=== PATIENT | female | born 1985 | race Caucasian/White ===

== ENCOUNTER 2018-12-26 12:28 | Outpatient (REF) | payer MEDICAID, SELFPAY ==
--- NOTE | 2018-12-26 11:00 | PAPFT_PTH ---
PATIENT: Ariel Betancourt LOC: [facility] U#:[id number] AGE/SX: 33/F ROOM: RE12/26/[address]: HELADIO Llamas : 1985 BED: DIS: 12/26/2018 SPEC #: [id number] RECD: 12/26/18 12:56 STATUS: ANNE MARIE REQ #: [id number] BRIGIDO: 12/26/18 11:[address]: Isabel Molina DEPT: [facility] Cytology RECD BY: Belinda Davison ENTERED: 12/26/18 12:56 SP TYPE: PAPFT OT DR: None Tissues: 1 - CX/ENDOCX FOR PAP SMEARS Procedures: PAP THIN PREP/UVM Screening HPV DNA PROBE Comments: [id number]
== END 2018-12-26 12:48 ==
LOC: LBN 12:28
PROVIDERS: Visit Provider Nurse Practitioner Family
DX: Z12.4 Encounter for screening for malignant neoplasm of cervix (principal); Z11.51 Encounter for screening for human papillomavirus (HPV)
CPT/HCPCS: 88142; 87624

== ENCOUNTER 2019-09-28 15:45 | Outpatient (REF) | payer MEDICAID, SELFPAY ==
[2019-10-01 13:15] LABS: Chlamydia Result Negative (Negative); GC Result Negative (Negative)
== END 2019-09-28 16:05 ==
LOC: LBN 15:45
PROVIDERS: Visit Provider Nurse Practitioner Family
DX: Z11.3 Encounter for screening for infections with a predominantly sexual mode of transmission (principal)
CPT/HCPCS: 87491; 87591

== ENCOUNTER 2019-10-04 12:02 | Outpatient (CLI) | payer MEDICAID, SELFPAY ==
[2019-10-04 13:54] LABS: TSH (W/Ref FT4) 0.92 uIU/mL (0.36-3.74)
== END 2019-10-04 12:22 ==
PROVIDERS: PCP Nurse Practitioner Family; Visit Provider Nurse Practitioner Family
DX: N92.6 Irregular menstruation, unspecified (principal)
CPT/HCPCS: 36415; 84443

== ENCOUNTER 2021-04-21 11:26 | Outpatient (REF) | payer MEDICAID, SELFPAY ==
[2021-04-22 15:57] LABS: COVID-19 RT-PCR UVMMC Result Negative (Negative)
== END 2021-04-21 11:27 | disposition home or self-care (01) ==
LOC: LBN 11:26
PROVIDERS: PCP Nurse Practitioner Family; Visit Provider Nurse Practitioner Family
DX: Z20.822 Contact with and (suspected) exposure to COVID-19 (principal); J06.9 Acute upper respiratory infection, unspecified
CPT/HCPCS: U0003

== ENCOUNTER 2021-04-30 10:51 | Outpatient (CLI) | payer MEDICAID, SELFPAY ==
--- NOTE | 2021-04-30 | DI.RAD_ITS ---
Exam(s) XR CHEST 2V PA LATERAL EXAM: XR CHEST 2V PA LATERAL CLINICAL HISTORY: COUGH R05. TECHNIQUE: 2D digital imaging was performed. COMPARISON: No exams were available for comparison FINDINGS: Heart size is normal. The mediastinum is not widened. Lungs are hyperinflated but there are no focal infiltrates nor pleural effusions. No pneumothorax. No ominous pulmonary nodules. IMPRESSION: No acute pulmonary findings.Bilateral hyperinflation. DATA REPOSITORY: RADIATION DOSE DELIVERED:
== END 2021-04-30 11:11 ==
PROVIDERS: PCP Nurse Practitioner Family; Visit Provider Physician Assistant Medical
DX: R05 Cough (principal); R91.8 Other nonspecific abnormal finding of lung field
CPT/HCPCS: 71046

== ENCOUNTER 2021-05-02 11:59 | Outpatient (REF) | payer MEDICAID, SELFPAY ==
[2021-05-02 14:54] LABS: Abs Immature Grans 0.03 10^3/uL (0.0-0.06); Absolute Basophil Count 0.03 10^3/uL (0.0-0.2); Absolute Eosinophil Count 0.45 10^3/uL (0.0-0.7); Absolute Lymphocyte Count 3.18 10^3/uL (1.2-3.4); Absolute Monocyte Count 0.83 10^3/uL (0.1-0.8); Absolute Neutrophil Count 4.57 10^3/uL (1.2-6.7); Basophils % 0.3; HCT 44.4 % (36.0-46.0); HGB 14.7 g/dL (11.2-15.7); Immature Grans % 0.3; MCH 30.7 pg (27.0-33.0); MCHC 33.1 % (32.0-36.0); MCV 92.7 fL (80-95); MPV 9.8 fL (8.0-11.0); Monocytes % 9.1; Neutrophils % 50.3; Nucleated RBC 0 %; Platelet Count 330 10^3/uL (130-400); RBC 4.79 10^6/uL (3.93-5.22); RDW 12.5 % (11.7-14.6); WBC 9.09 10^3/uL (4.4-10.8)
== END 2021-05-02 12:00 | disposition home or self-care (01) ==
LOC: LBN 11:59
PROVIDERS: PCP Nurse Practitioner Family; Visit Provider Nurse Practitioner Family
DX: R07.89 Other chest pain (principal); J06.9 Acute upper respiratory infection, unspecified
CPT/HCPCS: 85025; 85379

== ENCOUNTER 2021-07-29 03:15 | Outpatient (CLI) | payer MEDICAID, SELFPAY ==
[2021-07-29 12:16] LABS: Abs Immature Grans 0.06 10^3/uL (0.0-0.06); Absolute Basophil Count 0.03 10^3/uL (0.0-0.2); Absolute Eosinophil Count 0.39 10^3/uL (0.0-0.7); Absolute Lymphocyte Count 2.16 10^3/uL (1.2-3.4); Absolute Monocyte Count 0.63 10^3/uL (0.1-0.8); Absolute Neutrophil Count 7.57 10^3/uL (1.2-6.7); Basophils % 0.3; Eosinophils % 3.6; HCT 39.2 % (36.0-46.0); HGB 13.3 g/dL (11.2-15.7); Immature Grans % 0.6; Lymphocytes % 19.9; MCH 31.1 pg (27.0-33.0); MCHC 33.9 % (32.0-36.0); MCV 91.8 fL (80-95); Monocytes % 5.8; Neutrophils % 69.8; Nucleated RBC 0 %; Platelet Count 247 10^3/uL (130-400); RBC 4.27 10^6/uL (3.93-5.22); RDW 12.9 % (11.7-14.6); RDW-SD 43.1 fL; WBC 10.84 10^3/uL (4.4-10.8)
[2021-07-29 13:45] LABS: *AMPHETAMINES SCREEN URINE Negative (Negative); *BARBITURATES SCREEN URINE Negative (Negative); *BENZODIAZEPINES SCREEN URINE Negative (Negative); Cannabinoids THC Positive (Negative); Cocaine Screen,Urine Negative (Negative); METHADONE URINE SCREEN Negative (Negative); OPIATES URINE SCREEN Negative (Negative)
[2021-07-29 13:46] LABS: Tricyclic Antidepressants Negative (Negative)
[2021-07-30 08:57] LABS: Hepatitis B Surface Ag Negative (Negative)
[2021-07-30 10:20] LABS: HIV-1/2 Ag & Ab Screen Negative (Negative)
[2021-07-30 10:33] LABS: Hepatitis C Ab w Rflx HCV PCR Negative (Negative)
[2021-07-30 10:37] LABS: Rubella IgG Ab (UVM) Positive (See Note); Varicella IgG Antibody Positive (See Note)
[2021-07-30 13:38] LABS: Syphilis Total Ab w/Reflex Nonreactive (Nonreactive)
[2021-07-30 14:37] LABS: Chlamydia Result Negative (Negative); GC Result Negative (Negative)
[2021-08-01 13:30] LABS: Buprenorphine Negative ng/mL (Cutoff: 5.0); Norbuprenorphine Negative ng/mL (Cutoff: 2.5)
== END 2021-07-29 03:16 | disposition home or self-care (01) ==
LOC: LBO 03:15 → LBN 12:48
PROVIDERS: PCP Nurse Practitioner Family; Visit Provider Advanced Practice Midwife
DX: Z34.91 Encounter for supervision of normal pregnancy, unspecified, first trimester (principal)
CPT/HCPCS: 36415; 80307; 86787; 86803; 86850; 86900; 86901; 87340; 87389; 87491; 87591; 84443; 85025; 86762; 86780; 87086

== ENCOUNTER 2021-09-02 02:11 | Outpatient (CLI) | payer MEDICAID, SELFPAY ==
[2021-09-02 12:07] LABS: Kit/Specimen SENT
[2021-09-11 23:47] LABS: Result Summary NEGATIVE; Specimen WB Whole Blood
== END 2021-09-02 02:12 | disposition home or self-care (01) ==
LOC: LBO 02:11
PROVIDERS: PCP Nurse Practitioner Family; Visit Provider Advanced Practice Midwife
DX: Z34.92 Encounter for supervision of normal pregnancy, unspecified, second trimester (principal)
CPT/HCPCS: 36415; 81220

== ENCOUNTER 2021-10-02 18:22 | Emergency (ER) | payer MEDICAID, SELFPAY ==
[2021-10-02 18:24] VITALS: BP 128/68; PULSE 91; RESP 16; TEMP 36.6; O2SAT 98
--- NOTE | 2021-10-02 18:56 | W.ED.GENAD ---
Discharge Plan Disposition Patient Disposition: HOME Condition: Stable Discharge Details Clinical Impression: Pain, dental Primary Care Provider: Emerita Robert ED Provider: Wong Noland Home Meds and New Rx's Prescriptions: New penicillin V potassium 500 mg tablet 500 mg PO QID 7 Days Qty: 28 RF: 0 Continued prenat.vits,abbi,tsq-eviv-tltnr Tablet 1 tab PO DAILY RF: 0 aspirin [Lo-Dose Aspirin] 81 mg tablet,delayed release (DR/EC) See Rx Instructions PO DAILY RF: 0 cholecalciferol (vitamin D3) 125 mcg (5,000 unit) capsule 125 mcg PO .COMPLEX RF: 0 ferrous sulfate [Iron (ferrous sulfate)] 325 mg (65 mg iron) Tablet 50 mg PO PRN PRNRF: 0 Discharge Instructions Instructions: Toothache (ED) Additional Instructions: You may continue to use [id number] acetaminophen and sensitive toothpaste as discussed. Please return for worsening of condition which would include facial swelling, fever chills, if occultly swallowing breathing or swelling to your tongue. It is very important that you follow-up with a dental provider preferably in a week for reassessment and definitive care of your complaint. Medical Decision Making Exam consistent with dental pain without infection or abscess. no signs of deep neck space infection ( Retropharyngeal abscess, Geovanny's angina, Parapharyngeal space infection, Peritonsillar Abscess ([employer])) or Epiglottitis, No signs of trigeminal neuralgia. Pt non toxic and stable. Pt. encouraged to continue over the counter therapy and follow up with dental provider as soon as possible for definitive care of Dental complaint. Given patient states history of dental infection plan to give patient a pocket prescription for antibiotics but thoroughly discussed when to use these and that at this time I do not feel that she has an infection but given that its been less than 24 hours her symptoms I do feel that it is possible that she has early dental abscess. After discussion of diagnosis and plan of care patient has no further needs, questions, or concerns and states clear understanding to return to the emergency department for any worsening symptoms. HPI General Mode of arrival: ambulatory. Date/Time Provider Initiated Documentation: 10/02/21 18:28. Limitations to Documentation: no limitations. Information obtained by: patient. History of Present Illness 36 year old F presents to the emergency department with the chief complaint of Dental pain, described as severe, with intensity rated at 7. Quality is described as sharp, and is localized to the mouth. Patient reports no radiation. Patient started experiencing this day(s) (1) and it has been constant. No relieving factors improve symptom(s), Patient notes no other symptoms.. Patient did receive the following treatments prior to arrival, NSAID Related Data Home Medications Medication Instructions Recorded Confirmed prenat.vits,abbi,bwr-avss-tsfuc 1 tab PO DAILY 07/02/21 10/02/21 aspirin 81 mg tablet,delayed See Rx Instructions PO DAILY 08/28/21 10/02/21 release cholecalciferol (vitamin D3) 125 125 mcg PO .COMPLEX 09/28/21 10/02/21 mcg (5,000 unit) capsule ferrous sulfate [Iron (ferrous 50 mg PO PRN PRN 10/02/21 10/02/21 sulfate)] penicillin V potassium 500 mg PO QID 7 Days #28 tab 10/02/21 Previous Rx's Medication Instructions Recorded penicillin V potassium 500 mg PO QID 7 Days #28 tab 10/02/21 Allergies Allergy/AdvReac Type Severity Reaction Status Date / Time No Known Allergies Allergy Verified 10/02/21 18:43 General Stated Complaint: DentalOral LAURA: 4 Review of Systems Constitutional Constitutional: Denies chills and Denies fever(s) ENT Ears, Nose, Mouth, and Throat: Reports as per HPI, Denies change in voice, Reports dental pain, Denies dysphagia, Denies throat swelling and Denies tongue swelling Cardiovascular Cardiovascular: Denies chest pain and Denies dyspnea Respiratory Respiratory: Denies dyspnea, Denies stridor and Denies wheezing Gastrointestinal Gastrointestinal: Denies abdominal pain, Denies dysphagia, Denies nausea and Denies vomiting Integumentary/Breasts Skin/Breast: Denies rash Allergic/Immunologic Allergic/Immunologic: Denies throat swelling, Denies tongue swelling and Denies wheezing PFSH All Active Problems (Updated 10/02/21 @ 18:57 by Wong Noland NP) Pain, dental (Acute) Anxiety (Chronic) wellbutrin in the past Advanced maternal age (AMA) in (Acute) (Acute) Marijuana smoker (Acute) test positive (Acute) Depression (Acute 03/05/14) Surgical History (Updated 07/12/18 @ 14:33 by [employer] [place]) Biopsy of breast (~2004) Dr Covarrubias Family History (Updated 07/29/21 @ 10:52 by Elena Thompson CNM) Mother Lung cancer age 53 Father COPD (chronic obstructive pulmonary disease) Social History (Updated 07/29/21 @ 10:55 by Elena Thompson CNM) Smoking/Tobacco Use Status: Former Tobacco Use Smoking risk assessment performed?: Yes Alcohol Intake: never Drug use: Daily Substance use type: marijuana Details: THC 1-2 times per day. current occupation: [employer] Do you feel safe at home: Yes Do you feel safe in your relationship?: Yes Female Reproductive History Menstrual control method: condoms History History 1 Para 0 Hx # Term Pregnancies 0 Multiple births 0 Hx # Pregnancies 0 Ectopic pregnancies 0 AB induced 0 Hx Number of Living Children 0 AB spontaneous 0 Exam Const General: cooperative Orientation: alert, awake and oriented x3 Limitations: mental status not altered [facility] Head: normal to inspection, normocephalic and atraumatic Ears: hearing grossly normal bilaterally, normal mastoids bilaterally and no periauricular adenopathy General nose exam: external nose normal Mouth: oropharynx normal, no drooling, no muffled voice, normal tongue and no trismus Teeth and gingiva: other ( #2 Tenderness to palpation without erythema or gumline swelling) Throat: posterior oropharynx normal, tonsils normal and uvula midline Eyes General: appearance normal, both eyes and all related structures Pupils: PERRL Neck Neck: normal visual inspection, full ROM, no lymphadenopathy, no meningeal signs, trachea midline, supple, no anterior neck swelling and no midline deformity Resp Effort & Inspection: normal respiratory effort and able to speak in complete sentences Auscultation: clear to auscultation bilaterally Cardio Rate: regular rate Rhythm: regular rhythm Heart Sounds: S1 normal and S2 normal Course Vital Signs Vital signs: Vital Signs Temperature 36.6 C 10/02/21 18:24 Pulse 91 H 10/02/21 18:24 Respiratory Rate 16 10/02/21 18:24 Blood Pressure 128/68 10/02/21 18:24 Pulse Oximetry 98 10/02/21 18:24 Temperature 36.6 C 10/02/21 18:24 Temperature Source Oral 10/02/21 18:24 Pulse 91 H 10/02/21 18:24 Respiratory Rate 16 10/02/21 18:24 Respiratory Effort Non-Labored 10/02/21 18:30 Blood Pressure 128/68 10/02/21 18:24 Blood Pressure Position Sitting 10/02/21 18:24 Pulse Oximetry 98 10/02/21 18:24 Oxygen Delivery Method Room Air 10/02/21 18:24 Oxygen Flow Rate 0 10/02/21 18:24 Pain Level 7 10/02/21 18:30
[2021-10-02 19:18] VITALS: BP 128/68; PULSE 91; RESP 16; TEMP 36.6; O2SAT 98
== END 2021-10-02 19:11 | disposition home or self-care (01) ==
PROVIDERS: Emergency Provider Nurse Practitioner Family; PCP Nurse Practitioner Family
DX: O99.891 Other specified diseases and conditions complicating pregnancy (principal); K08.89 Other specified disorders of teeth and supporting structures; Z3A.20 20 weeks gestation of pregnancy
CPT/HCPCS: 99283

== ENCOUNTER 2021-11-26 04:24 | Outpatient (CLI) | payer MEDICAID, SELFPAY ==
[2021-11-26 13:10] LABS: HCT 36.3 % (36.0-46.0); HGB 12.2 g/dL (11.2-15.7); MCH 30.6 pg (27.0-33.0); MCHC 33.6 % (32.0-36.0); MPV 9.4 fL (8.0-11.0); Platelet Count 267 10^3/uL (130-400); RBC 3.99 10^6/uL (3.93-5.22); RDW 12.5 % (11.7-14.6); RDW-SD 41.4 fL; WBC 16.01 10^3/uL (4.4-10.8)
[2021-11-26 13:27] LABS: Glucose,1 Hr (Glucola) 101 mg/dL (80-140)
== END 2021-11-26 04:25 | disposition home or self-care (01) ==
LOC: LBO 04:24
PROVIDERS: Advanced Practice Midwife; PCP Nurse Practitioner Family; Visit Provider Advanced Practice Midwife
DX: Z3A.28 28 weeks gestation of pregnancy (principal); Z34.93 Encounter for supervision of normal pregnancy, unspecified, third trimester
CPT/HCPCS: 36415; 82950; 85027

== ENCOUNTER 2022-01-19 18:44 | Outpatient (REF) | payer MEDICAID, SELFPAY ==
[2022-01-20 02:41] LABS: *AMPHETAMINES SCREEN URINE Negative (Negative); *BARBITURATES SCREEN URINE Negative (Negative); *BENZODIAZEPINES SCREEN URINE Negative (Negative); Cannabinoids THC Positive (Negative); Cocaine Screen,Urine Negative (Negative); METHADONE URINE SCREEN Negative (Negative); OPIATES URINE SCREEN Negative (Negative)
[2022-01-20 02:45] LABS: Tricyclic Antidepressants Negative (Negative)
[2022-01-27 17:01] LABS: Buprenorphine Negative ng/mL (Cutoff: 5.0); Norbuprenorphine Negative ng/mL (Cutoff: 2.5)
== END 2022-01-19 18:45 | disposition home or self-care (01) ==
LOC: LBN 18:44
PROVIDERS: PCP Nurse Practitioner Family; Visit Provider Advanced Practice Midwife
DX: O26.893 Other specified pregnancy related conditions, third trimester (principal); N89.8 Other specified noninflammatory disorders of vagina; Z36.85 Encounter for antenatal screening for Streptococcus B; Z3A.36 36 weeks gestation of pregnancy
CPT/HCPCS: 80307; 87081; 87480; 87510; 87660

== ENCOUNTER 2022-01-26 00:06 | Inpatient (IN) | payer MEDICAID, SELFPAY ==
[2022-01-26] VITALS (38 sets, daily range): BP systolic 98–133; BP diastolic 55–85; PULSE 67–111; RESP 16–18; TEMP 36.7–36.8; O2SAT 97–100; BMI 22.1
--- NOTE | 2022-01-26 00:45 | W.PM.OBHPL1 ---
Date of service: 01/26/22 Time of Service: 00:45 Assessment and Plan Assessment and plan (1) Premature rupture of membranes (PROM) affecting first : Status: Acute Assessment and plan: 1. Admit, routine labs 2. Having some contractions shortly after ROM, will watch for active labor 3. Patient is planning epidural for pain management but will use nitrous and shower / ambulation / ball until active labor. [facility] OB-HPI Labor/Delivery History of Present Illness Reason for Visit: Rule out rupture of membranes Chief Complaint: Suspected Rupture of Membranes , Associated Signs and Symptoms of Suspected ROM: nitrazine Positive, clear fluid leaking from vagina. MARIELOS Calculator Estimated Delivery Date Method Current WG Current Estimate 02/16/22 LMP (Certain) 37w 0d Other Estimates 02/14/22 Ultrasound #1 37w 2d History of Present Expected Delivery Route/Plan - CNM FOB/boyfriend - Rex Little-his first child BB yes to circ GBS negative Specific Issues/Plan 1. AMA: offer level 2 sono/MFM consult [place] [facility] [place] cfDNA testing, declines claritest due to cost, declines CF testing. Consider panorama when it is available. 1a. Panorama is neg/low prob, gender is male. CF carrier neg 1b. [facility] sono/consult 09/23: nml level 2 w/partial circumvallate anterior placenta seen, no f/up indicated per MFM 2. Regular MJ user, counseled to decrease use, pt does not plan to. UDS 07/29 +THC 2a. repeat UDS 28 weeks, 2b. Is aware that POSC will need to be done if she continues to use 2c. THC - pos. at 36 weeks - POSC done 01/25/22 3. Underweight: BMI 17 at conception 4. Pt unvaccinated for COVID, FOB has had first shot 5. Increased preeclampsia risk due to AMA and nulliparity - ASA daily recommended 81/162 6. Dental pain, needs dental care, appt made for 11/06 7. Bacterial vaginosis - treatment with metronidazole Assessment: History Reviewed & Current Narrative: Latasha presents with her , Luis, with complaint of ROM large gush of clear fluid at 2300 01/26/22. States contractions began at 2330 approximately every 5 minutes. Baby has been active. Patient is planning epidural for pain management but will use shower and nitrous until active labor. Informed Consent Informed Consent: Augmentation of Labor and Regional Anesthesia Review of Systems All systems reviewed & are unremarkable except as noted in HPI and below PFSH All Active Problems (Updated 01/26/22 @ 00:57 by Elena Stafford CNM) Premature rupture of membranes (PROM) affecting first (Acute) Vaginal discharge during (Acute) 28 weeks gestation of (Acute) Anxiety (Chronic) wellbutrin in the past Advanced maternal age (AMA) in (Acute) Marijuana smoker (Acute) Depression (Acute 03/05/14) Medical History Pain, dental resolved after taking antibiotics Surgical History Biopsy of breast (~2004) Dr Covarrubias Family History Mother Lung cancer age 53 Father COPD (chronic obstructive pulmonary disease) Social History Smoking/Tobacco Use Status: Former Tobacco Use Smoking risk assessment performed?: Yes Alcohol Intake: never Drug use: Daily Substance use type: marijuana Details: THC 1-2 times per day. current occupation: [email or web address] Do you feel safe at home: Yes Do you feel safe in your relationship?: Yes Female Reproductive History Menstrual control method: condoms History History 1 Para 0 Hx # Term Pregnancies 0 Multiple births 0 Hx # Pregnancies 0 Ectopic pregnancies 0 AB induced 0 Hx Number of Living Children 0 AB spontaneous 0 Meds Allergies and Home Medications Allergies Allergy/AdvReac Type Severity Reaction Status Date / Time No Known Allergies Allergy Verified 01/26/22 00:54 Home Medications Medication Instructions Recorded Confirmed Type prenat.vits,abbi,dyt-tdei-xwnoi 1 tab PO DAILY 07/02/21 01/25/22 History aspirin 81 mg tablet,delayed See Rx Instructions PO DAILY 08/28/21 01/25/22 History release (Lo-Dose Aspirin) cholecalciferol (vitamin D3) 125 125 mcg PO .COMPLEX 09/28/21 01/25/22 History mcg (5,000 unit) capsule ferrous sulfate 325 mg (65 mg 50 mg PO PRN PRN 10/02/21 01/25/22 History iron) tablet (Iron (ferrous sulfate)) metronidazole 500 mg tablet 500 mg PO BID #14 tab 01/20/22 01/25/22 Rx Exam Physical Exam Vital signs: Temp Pulse Resp BP Pulse Ox 98.2 F 86 16 117/73 97 01/26/22 00:25 01/26/22 00:30 01/26/22 00:01/26/22 00:01/26/22 00:30 Vital Signs Reviewed: Yes Constitutional Constitutional: mild distress (working well with contractions but is very aware of them. ) Detailed Labor and Delivery Exam Dilation: 2 Effacement (%): 70 station: -1 Position: FRANKI Cervix position: posterior Consistency: soft Kelly Score: Cervical Points Exam 0 1 2 3 Dilation Closed 1-2cm 3-4 cm 5-6cm Effacement 0-30% 40-50% 60-70% 80% Consistency Firm Medium Soft Station -3 -2 -1,0 +1,+2 Position Posterior Mid Anterior KELLY Score(Cervical Ripeness Score): 7 Amniotic Membrane Status: Ruptured (01/26/22 2300 clear fluid) Rupture Method: Spontaneous Amniotic Fluid: Clear Nitrazine: Positive Contraction Frequency(min): 3-5 Contraction Duration(sec): 60 Contraction Intensity: Mild/Moderate Fetus A Heart Rate Baseline: 120 Monitor Accelerations: 15 X 15 Monitor Decelerations: None Variability: Moderate (6-25 BPM) Presentation: Vertex Categories: Category I Est. Weight: 8 lb Date of Membrane Rupture: 01/25/22 Time of Membrane Rupture: 23:00 HEENT Exam HEENT Exam: Normal Neck Exam Neck Exam: Normal (on visual inspection) Chest/Brest/Axilla Exam Chest Exam: Normal Breast Exam Breast Exam: Not Done Respiratory Exam Respiratory Exam: Normal Cardiovascular Exam Cardiovascular Exam: Normal Abdominal Exam Abdominal Exam: Normal (gravid uterus, size equals dates. ) Rectal Exam Rectal Exam: Not Done Exam Exam: Normal Extremities Exam Extremities Exam: Normal Back/Spine/Pelvis Exam Pelvis Adequate: Yes Skin Exam Skin Exam: Normal Neurological Exam Neurological Exam: Normal Psychiatric Exam Psychiatric Exam: Normal Results Results Group Beta Strep: Negative Blood Type: A+ Rubella Status: Immune Varicella Immunity: Immune Lab Results: Hep B and C neg, HIV neg, Syphillis NR, Panorama Low Risk, male, CF neg, declined SMA Risk Assessment Risk for Shoulder Dystocia Historical/Initial OB: NEGATIVE FOR: Pelvic Abnormality, Pre- BMI>30, Previous Shoulder Dystocia or Previous Macrosomia 40 Weeks: NEGATIVE FOR: EFW> 4500 gms, Maternal Weight Gain >40lb or Post Dates Delivery Plan @ 36wks: NVD expected. Delivery Plan @ 40 wks: NVD Risk for Pre-Eclampsia Yes, if one or more: NEGATIVE FOR: Hx Pre-E/Gest HTN, Chronic HTN, Multiple Gestation, Pre-gestational DM, Renal Disease, Systemic Lupus or APA Syndrome Yes, if 2 or more: POSITIVE FOR: Nulliparity and Age>= 35 yrs; NEGATIVE FOR: >10yr btwn pregnancies, BMI>30, ethinicty, Mother/Sister w/ Pre-E or Previous IUGR Risk for Post- Hemorrhage Initial: NEGATIVE FOR: Multiple Gestation, Previous PPH, Known Clotting Deficiency, Grand Multiparity or Anticoagulation At Risk?: No Counseled re: Active Management: Yes Date/Initials: 01/26/22 Risks Reviewed Risks Reviewed Upon Admission: Yes
[2022-01-26 01:25] LABS: Source Nasal/Nares
[2022-01-26 01:28] LABS: HCT 42.1 % (36.0-46.0); HGB 13.5 g/dL (11.2-15.7); MCH 29.1 pg (27.0-33.0); MCHC 32.1 % (32.0-36.0); MCV 91 fL (80-95); MPV 9.7 fL (8.0-11.0); Platelet Count 342 10^3/uL (130-400); RBC 4.64 10^6/uL (3.93-5.22); RDW 13.5 % (11.7-14.6); RDW-SD 44.9 fL; WBC 14.91 10^3/uL (4.4-10.8)
--- NOTE | 2022-01-26 01:58 | W.PM.OBNL1 ---
Date of service: 01/26/22 Time of Service: 01:58 Informed Consent Informed Consent: Augmentation of Labor and Regional Anesthesia Pelvic Exam Dilation: 2.5 Effacement (%): 90 station: -1 Contractions Monitor Mode: Palpation Contraction Frequency(min): 2-3 Contraction Duration(sec): 60 Intensity: Moderate/Strong Fetus A Monitor: Doppler Heart Rate Baseline: 120 Assessment and Plan Assessment and plan (1) Premature rupture of membranes (PROM) affecting first : Status: Acute Assessment and plan: 1. anesthesia provider notified and will attend for epidural as soon as possible 2. will reassess as indicated by maternal status. 3. expect NVD. KH Objective Abnormal lab results 01/26/22 Range/Units 01:16 WBC 14.91 H (4.4-10.8) 10^3/uL Temp Pulse Resp BP Pulse Ox 98.2 F 86 18 117/73 97 01/26/22 00:25 01/26/22 00:30 01/26/22 00:25 01/26/22 00:25 01/26/22 00:30 Laboratory Results WBC 14.91 10^3/uL (4.4-10.8) H 01/26/22 01:16 RBC 4.64 10^6/uL (3.93-5.22) 01/26/22 01:16 Hgb 13.5 g/dL (11.2-15.7) 01/26/22 01:16 Hct 42.1 % (36.0-46.0) 01/26/22 01:16 MCV 91 fL (80-95) 01/26/22 01:16 MCH 29.1 pg (27.0-33.0) 01/26/22 01:16 MCHC 32.1 % (32.0-36.0) 01/26/22 01:16 RDW 13.5 % (11.7-14.6) 01/26/22 01:16 Plt Count 342 10^3/uL (130-400) 01/26/22 01:16 MPV 9.7 fL (8.0-11.0) 01/26/22 01:16 COVID-19 Source Nasal/Nares 01/26/22 01:10 Subjective Interval history since last seen: Requesting epidural. Tried Nitrous without relief. Is not interested in tub. states her plan is epidural. Anesthesia notified by [employer]. KH Results Hemoglobin/Hematocrit: Hgb 13.5 g/dL (11.2-15.7) 01/26/22 01:16 Hct 42.1 % (36.0-46.0) 01/26/22 01:16 Abnormal Lab Findings: Abnormal Labs 01/26/22 01:16 WBC 14.91 H
[2022-01-26 02:02] LABS: COVID-19 PCR Negative (Negative)
[2022-01-26] MEDS: Normal Saline 500 ML 999 ML IV (02:05)
--- NOTE | 2022-01-26 02:24 | W.ANESPRE ---
General Info Date of Service Date Performed: 01/26/22 Height: 5 ft 4.17 in Weight: 58.967 kg Body Mass Index (BMI): 22.1 Meds Allergies and Home Medications Allergies Allergy/AdvReac Type Severity Reaction Status Date / Time No Known Allergies Allergy Verified 01/26/22 00:54 Home Medication Medication Instructions Recorded prenat.vits,abbi,vym-mawl-obemz 1 tab PO DAILY 07/02/21 aspirin 81 mg tablet,delayed See Rx Instructions PO DAILY 08/28/21 release (Lo-Dose Aspirin) cholecalciferol (vitamin D3) 125 125 mcg PO .COMPLEX 09/28/21 mcg (5,000 unit) capsule ferrous sulfate 325 mg (65 mg 50 mg PO PRN PRN 10/02/21 iron) tablet (Iron (ferrous sulfate)) metronidazole 500 mg tablet 500 mg PO BID #14 tab 01/20/22 Current Visit Medications: Current Medications Generic Name Dose Route Start Last Admin Trade Name Freq PRN Reason Stop Dose Admin Fentanyl/Ropivacaine 200 ml 01/26/22 02:00 Fentanyl/Ropivacaine 2 Mcg/Ml And 0.1% 200 Ml Cadd Cassette EP DIRECTED JARON Sodium Chloride 500 mls @ 0 mls/hr 01/26/22 00:59 01/26/22 02:05 Saline 500ml Bag IV 999 mls/hr PRN PRN Administration As Directed Ringer's Solution 1,000 mls @ 125 mls/hr 01/26/22 01:00 IV INFUSION JARON Ringer's Solution 500 mls @ 500 mls/hr 01/26/22 01:50 IV 01/26/22 02:49 BOLUS ONE IV Miscellaneous Supplies 1 each 01/26/22 01:00 Iv Access IV DIRECTED JARON Sodium Chloride 0 ml 01/26/22 00:59 Normal Saline Flush 10 Ml Syr IVP PRN PRN PFSH Active Problems Active Problems: Problem Status Onset Code Premature rupture of membranes (PROM) affecting first O42.90 Vaginal discharge during O26.899, N89.8 28 weeks gestation of Z3A.28 Anxiety F41.9 Advanced maternal age (AMA) in Tobacco dependence F17.200 Marijuana smoker F12.90 Depression 03/05/14 F32.9 Medical History Medical History Pain, dental resolved after taking antibiotics Surgical History Surgical History Biopsy of breast (~2004) Dr Covarrubias Tobacco Smoking/Tobacco Use Status: Former Tobacco Use Alcohol Alcohol Intake: never Substance Use Substance use: Daily Substance use type: marijuana Details: THC 1-2 times per day. Prental History History 1 Para 0 Hx # Term Pregnancies 0 Multiple births 0 Hx # Pregnancies 0 Ectopic pregnancies 0 AB induced 0 Hx Number of Living Children 0 AB spontaneous 0 Vital Signs and Lab Results Vital Signs Most Recent Vital Signs in EMR: Most Recent Vital Signs Temp Pulse Resp BP Pulse Ox 36.8 C 86 18 117/73 97 01/26/22 00:25 01/26/22 00:30 01/26/22 00:25 01/26/22 00:25 01/26/22 00:30 Lab Results Result Diagrams: 01/26/22 01:16 Blood Type / Crossmatch: Patient ABO/Rh A Positive 01/26/22 Antibody Screen NEGATIVE 01/26/22 Complete Blood Count: White Blood Count 14.91 10^3/uL (4.4-10.8) H 01/26/22 01:16 01/26/22 Red Blood Count 4.64 10^6/uL (3.93-5.22) 01/26/22 01:16 01/26/22 Hemoglobin 13.5 g/dL (11.2-15.7) 01/26/22 01:16 01/26/22 Hematocrit 42.1 % (36.0-46.0) 01/26/22 01:16 01/26/22 Platelet Count 342 10^3/uL (130-400) 01/26/22 01:16 01/26/22 Complete Metabolic Panel: No Data to Display Liver Function Panel: No Data to Display Coagulation Panel: No Data to Display Cardiac Panel: No Data to Display Arterial Blood Gas: No Data to Display Venous Blood Gas: No Data to Display Pancreas Panel: No Data to Display Thyroid Panel: No Data to Display Infectious Disease: Coronavirus (COVID-19)(PCR) Negative (Negative) 01/26/22 01:10 01/26/22 Coronavirus 2019 Source Nasal/Nares 01/26/22 01:10 01/26/22 Blood Cultures: No Data to Display Toxicology Panel: Urine Amphetamines Screen Negative (Negative) 01/19/22 13:20 01/19/22 Urine Benzodiazepines Screen Negative (Negative) 01/19/22 13:20 01/19/22 Urine Barbiturates Screen Negative (Negative) 01/19/22 13:20 01/19/22 Urine Cocaine Screen Negative (Negative) 01/19/22 13:20 01/19/22 Urine Methadone Screen Negative (Negative) 01/19/22 13:20 01/19/22 Urine Opiates Screen Negative (Negative) 01/19/22 13:20 01/19/22 Ur Tricyclic Antidepressants Screen Negative (Negative) 01/19/22 13:20 01/19/22 Ur Tetrahydrocannabinol (THC) Scrn Positive (Negative) A 01/19/22 13:20 01/19/22 Panel: No Data to Display Anesthesia Assessment and Plan Anesthesia History Personal History: No History of Anesthesia Complications Family History: No Family History of Anesthesia Complications Exercise Tolerance Exercise Tolerance: Metabolic Equivalents>4 Pertinent Negatives Pertinent Negatives: No Symptoms of GERD, No Major Cardiovascular Symptoms or Complaints, No Major Pulmonary Symptoms or Complaints and No History of CVA/TIA Cardiac & Pulmonary Exam Cardiac Exam: Normal S1/S2 Heart Sounds Pulmonary Exam: Clear Bilateral Breath Sounds Implantable Cardiac Device Does patient have a Pacemaker or an ICD?: No Airway Exam Known Difficult Airway: No Mallampati Class: 2 Mouth Opening: Normal (> 3cm) Thyromental Distance: Greater than 3 cm Neck Range of Motion: Full ROM Neck Circumference: Normal Teeth Condition: Normal Dentition ASA Classification ASA Score: ASA 2 Emergency Case?: No NPO Status NPO Status: NPO Clears >2 hours, Solids >8 hours Status Status: Confirmed Anesthesia Plan Resuscitation Status: Full Code Anesthesia Technique: Epidural Anesthesia Airway Planned: Natural Airway Pain Management: Surgeon and patient request nerve block Monitors Used: Standard Monitors
[2022-01-26] MEDS: Bupivacaine 0.25% Pres-Free 10 ML VIAL EP (03:00)
[2022-01-26] MEDS: Lactated Ringers 1,000 ML 125 ML IV (03:00)
--- NOTE | 2022-01-26 03:13 | W.ANESNEU ---
Epidural/Spinal Catheter Date Performed: 01/26/22 Procedure Start: 02:40 Procedure Stop: 02:52 Requesting Provider: Elena Stafford Procedure Location: Obstetrics Reason Performed: Labor Epidural Standard Monitors Applied: Blood Pressure and SpO2 Patient Position: Sitting Sedation Given (Indicate Dose Given): No Sedation given Patient Mental Status: Awake Sterility: Hand Hygiene, Surgical Cap, Surgical Mask, Sterile Gloves, Sterile Drape/Sheet and Chlorhexidine Procedure Location: L4-L5 Interspace Epidural Needle: Tuohy 17 Guage Needle Length: 3.5 Inch Needle Approach: Midline Epidural Procedure: Skin Prepped, Sterile Drape Placed, 1% Lidocaine to skin and subcutaneous tissue with 25G needle, Tuohy Needle placed, GAUTAM to Saline Used, Epidural Catheter Placed, Negative Heme and Negative CSF Flow Catheter Placed?: Catheter Placed Test Dose (Indicate Dose Given): 5ml 1.5% Lidocaine with 1:200K Epinephrine Given and Negative Test Dose Loss of Resistance Depth (cm): 7 Catheter depth at skin (cm): 13 Dressing: [place] Dressing Placed, Mastisol Used and Dressing reinforced with Tape Epidural Provider Bolus (Indicate Dose Given): Total bolus dose given in 3-5 ml divided doses, Total Ropivacaine 0.1% with Fentanyl 2mcg/ml Given from pump. (ml) Dose:: 5 ml and Total Bupivacaine 0.25% Given (ml) Dose:: 6 Additives (Indicate Dose Given ): None Infusion Medication: Medication Infusion Began Medication Infusion: Ropivacaine 0.1% with Fentanyl 2mcg/ml Maintenance Infusion Rate (ml/hour): 10 PCEA Bolus Dose (ml): 5 Block Level: T8 Paresthesia: None Ultrasound: Not Used Number of Attempts (See previous attempts in note section): 1 Procedure Tolerated: No Complications and Patient tolerated well Procedure Outcome: Successful Procedure Comment:: Difficulty with 1st CADD pump. Air error alarm despite no air present in sensor region. New CADD pump obtained. Performed By: Victor Manuel Larsen
[2022-01-26] MEDS: FentaNYL/ROPIvacaine 2 mcg/ml and 0.1% 200 ML CADD Cassette EP (03:15)
[2022-01-26] MEDS: Ondansetron 4 MG/2 ML VIAL IVP (03:49)
--- NOTE | 2022-01-26 04:27 | W.PM.OBNL1 ---
Date of service: 01/26/22 Time of Service: 04:27 Informed Consent Informed Consent: Augmentation of Labor and Regional Anesthesia Pelvic Exam Pooling: Positive Contractions Monitor Mode: External Intensity: Moderate Fetus A Monitor: External (US) Heart Rate Baseline: 140 Presentation: Vertex Variability: Moderate (6-25 BPM) Categories: Category II FHR Rhythm: Regular Characteristics: Normal Accelerations: Present Decelerations: Early Recurrence: Intermittent Amniotic Membrane Status: Ruptured Assessment and Plan Assessment and plan (1) Active labor at term: Status: Acute Assessment and plan: Assumed care from [facility] [place]. Patient is currently comfortable with a labor epidural. Occasional variable deceleration of heart rate noted. We will continue to follow labor progress and rate. Objective Abnormal lab results 01/26/22 Range/Units 01:16 WBC 14.91 H (4.4-10.8) 10^3/uL Temp Pulse Resp BP Pulse Ox 98.1 F 93 H 18 107/70 100 01/26/22 03:11 01/26/22 04:14 01/26/22 03:11 01/26/22 04:14 01/26/22 03:03 Laboratory Results WBC 14.91 10^3/uL (4.4-10.8) H 01/26/22 01:16 RBC 4.64 10^6/uL (3.93-5.22) 01/26/22 01:16 Hgb 13.5 g/dL (11.2-15.7) 01/26/22 01:16 Hct 42.1 % (36.0-46.0) 01/26/22 01:16 MCV 91 fL (80-95) 01/26/22 01:16 MCH 29.1 pg (27.0-33.0) 01/26/22 01:16 MCHC 32.1 % (32.0-36.0) 01/26/22 01:16 RDW 13.5 % (11.7-14.6) 01/26/22 01:16 Plt Count 342 10^3/uL (130-400) 01/26/22 01:16 MPV 9.7 fL (8.0-11.0) 01/26/22 01:16 COVID-19 Source Nasal/Nares 01/26/22 01:10 SARS-CoV-2 (PCR) Negative (Negative) 01/26/22 01:10 Patient ABO/Rh A Positive 01/26/22 01:16 Antibody Screen NEGATIVE 01/26/22 01:16 Interventions Pain Management Interventions: Epidural Labor epidural placed by Victor Manuel Soto CRNA. Patient currently comfortable tolerating contractions. .. Results Hemoglobin/Hematocrit: Hgb 13.5 g/dL (11.2-15.7) 01/26/22 01:16 Hct 42.1 % (36.0-46.0) 01/26/22 01:16 Abnormal Lab Findings: Abnormal Labs 01/26/22 01:16 WBC 14.91 H
--- NOTE | 2022-01-26 06:55 | W.PM.OBNL1 ---
Date of service: 01/26/22 Time of Service: 06:56 Informed Consent Informed Consent: Augmentation of Labor and Regional Anesthesia Pelvic Exam Dilation: 10 Effacement (%): 100 station: +1 Position: OA Vaginal Exam Presentation: Vertex Contractions Monitor Mode: External Contraction Frequency(min): Every 4 to 5 Contraction Duration(sec): 50 Intensity: Moderate Fetus A Monitor: External (US) Heart Rate Baseline: 150 Presentation: Cephalic Variability: Moderate (6-25 BPM) Categories: Category I FHR Rhythm: Regular Characteristics: Normal Accelerations: Present Decelerations: Early Recurrence: Intermittent Assessment and Plan Assessment and plan (1) Active labor at term: Status: Acute Assessment and plan: Patient completely dilated. Epidural is in place and is effective for labor analgesia. She will begin maternal expulsive efforts. Objective Abnormal lab results 01/26/22 Range/Units 01:16 WBC 14.91 H (4.4-10.8) 10^3/uL Temp Pulse Resp BP Pulse Ox 98.1 F 103 H 16 111/73 100 01/26/22 05:29 01/26/22 06:33 01/26/22 05:29 01/26/22 06:33 01/26/22 03:03 Laboratory Results WBC 14.91 10^3/uL (4.4-10.8) H 01/26/22 01:16 RBC 4.64 10^6/uL (3.93-5.22) 01/26/22 01:16 Hgb 13.5 g/dL (11.2-15.7) 01/26/22 01:16 Hct 42.1 % (36.0-46.0) 01/26/22 01:16 MCV 91 fL (80-95) 01/26/22 01:16 MCH 29.1 pg (27.0-33.0) 01/26/22 01:16 MCHC 32.1 % (32.0-36.0) 01/26/22 01:16 RDW 13.5 % (11.7-14.6) 01/26/22 01:16 Plt Count 342 10^3/uL (130-400) 01/26/22 01:16 MPV 9.7 fL (8.0-11.0) 01/26/22 01:16 COVID-19 Source Nasal/Nares 01/26/22 01:10 SARS-CoV-2 (PCR) Negative (Negative) 01/26/22 01:10 Patient ABO/Rh A Positive 01/26/22 01:16 Antibody Screen NEGATIVE 01/26/22 01:16 Subjective Interval history since last seen: Patient remains comfortable with labor epidural. Results Hemoglobin/Hematocrit: Hgb 13.5 g/dL (11.2-15.7) 01/26/22 01:16 Hct 42.1 % (36.0-46.0) 01/26/22 01:16 Abnormal Lab Findings: Abnormal Labs 01/26/22 01:16 WBC 14.91 H
--- NOTE | 2022-01-26 11:25 | W.OBDELIVERY ---
Date of service: 01/26/22 Time of Service: 11:00 OB Labor/ Delivery Information Baby A Delivery Delivery Method: Spontaneaous Presentation: Vertex Cephalic Position: Vertex Vertex Position: Left Occipital Anterior Amniotic Fluid: Clear Estimated Blood Loss: 200 Delivery Outcome: Liveborn Transferred: Remains with Mother Note: Ariel progressed to full dilation under the care of Dr. Megan Myers. She rested well and had no urge to push. The epidural was turned off at 0600 to allow sensation of pushing. This worked well and Ariel was able to feel her contractions and began pushing well upon my arrival at 0800. FHTs 120s during first stage of labor. FHTs 120s in second stage with recurrent variable decelerations associated with pushing. Progressed to full dilation and began pushing. Second stage huddle was done. Spontaneous delivery of male infant delivered in [place] position. Baby was placed on mother's abdomen and dried and stimulated. Spontaneous cry. Cord was clamped and cut by the baby's father . The placenta delivered spontaneously and appears to by intact with a three vessel cord. Pitocin was administered after delivery of the placenta. The perineum was inspected and there was a superficial laceration inside the introitus which was repaired under epidural analgesia with 3-0 vicryl interrupted sutures. The baby did breastfeed. After delivery, Mother and baby and father of the baby were stable and bonding well in the delivery room and there were no complications. Providers Nurse Rn Review: Elena Thompson Deputy Juvenile Officer: Victor Manuel Larsen Nurse: Marilee Bhatia Nurse: Khris Rodriguez Other: manager student services [facility] Labor/Delivery Information Number of Babies in Womb: 1 Steroids Given: None Reason Steroids Not Administered: N/A Group Beta Strep: Negative Antibiotics Administered: No Rubella Status: Immune Blood Type: A+ Varicella Immunity: Immune Maternal Complications: None Shoulder Dystocia: No Stages of Labor Onset of Labor Date: 01/25/22 Onset of Labor Time: 23:30 Complete Dilatation Date: 01/26/22 Complete Dilatation Time: 06:36 Labor - Stage 1 Duration: 24 hours and 0 minutes ROM Baby A: 01/25/22 ROM Baby A: 23:30 ROM Total Time- Baby A: [id number] Delivery Date-Baby A: 01/26/22 Delivery Time-Baby A: 09:27 Labor Stage 2 Duration: 2 hours and 51 minutes Placenta Delivery Date-Baby A: 01/26/22 Placenta Delivery Time-Baby A: 09:32 Labor-Stage 3 Duration: 5 minutes Total Length of Labor-Baby A: 9 hours and 57 minutes Placenta Cultured: No Placenta Status: Delivered Baby A Infant Gender: Male Gestational Status: Early Term (37-38.6 wks) Gestational Age in Weeks/Days: 37 Weeks and 0 Days Score-1 Minute Interval(Baby A) Heart Rate-1 minute: 100 BPM or Greater Respiratory Effort- 1 minute: Spontaneous/Strong Cry Muscle Tone-1 minute: Active Movement Reflex Response-1 minute: Prompt Response Color-1 minute: Bluish Hands or Feet Total Score-1 minute: 9 Score-5 Minute Interval(Baby A) Heart Rate- 5 minute: 100 BPM or Greater Respiratory Effort-5 minute: Spontaneous/Strong Cry Muscle Tone-5 minute: Active Movement Reflex Response-5 minute: Prompt Response Color-5 minute: Bluish Hands or Feet Total Score- 5 minute: 9 Interventions Repair of Laceration Type: Other (vaginal), Laceration Extension: First Degree. Sponge Count Correct: No Sponges Placed in Vagina, Sharp Count Correct: Yes. Laceration Repair Note: suprficial laceration inside introitus repaired with 3-0 and 4-0 interrupted sutures under epidural analgesia
[2022-01-26] MEDS: Ibuprofen 600 MG TAB PO (13:00)
--- NOTE | 2022-01-26 16:08 | W.ANESPOSTOP ---
Postoperative Evaluation Date, Time and Location Date Performed: 01/26/22 Time Performed: 16:08 Patient Location: Day Surgery Unit Vital Signs Most Recent Imported Vital Signs: Most Recent Vital Signs Temp Pulse Resp BP Pulse Ox 36.8 C 71 16 121/70 100 01/26/22 13:35 01/26/22 13:35 01/26/22 13:35 01/26/22 13:35 01/26/22 03:03 Pain Score Most Recent Pain Score: Most Recent Pain Score Pain Level [Bilateral Hip] 2 01/26/22 13:35 Pain Level 4 01/26/22 13:00 Assessment Mental Status: Awake (Alert & Oriented to Patient Baseline) Airway and Respiratory Function: Patent airway with normal (patient baseline) respiratory exam Cardiovascular Function: Hemodynamically Stable Hydration Status: Adequately Hydrated Nausea & Vomiting: No Nausea or Vomiting Pain: Pain is tolerable per patient Peripheral Nerve Block: Patient did not receive a nerve block
[2022-01-27 00:40] VITALS: BP 109/72; PULSE 74; RESP 18; TEMP 36.8
[2022-01-27 08:07] VITALS: PULSE 113; RESP 18; TEMP 36.8; O2SAT 97
[2022-01-27] MEDS: Docusate Sodium 100 MG CAP PO (08:36)
[2022-01-27] MEDS: Acetaminophen 325 MG TAB 650 MG PO (08:36)
[2022-01-27] MEDS: Ibuprofen 600 MG TAB PO ×2 (12:38→21:35)
--- NOTE | 2022-01-27 16:47 | OBPPV_ITS ---
Date of service: 01/27/22 Time of Service: 13:00 Assessment and Plan Assessment and plan (1) Term delivered: Status: Acute Assessment and plan: A: nml PPD #1 Satisfied with experience P: Planning discharge to home tomorrow Continue support Desires circumcision prior to discharge Subjective Subjective Patient comments: No complaints, Pain well controlled, Tolerating diet and Flatus present Patient's Mood: tired, happy [place] baby status: Doing well, Nursing well, Rooming in and Strong Bonding Observed feeding status: Exclusively breast feeding Exam Physical Exam Vital signs: Temp Pulse Resp BP Pulse Ox 98.2 F 113 H 18 109/72 97 01/27/22 08:07 01/27/22 08:07 01/27/22 08:07 01/27/22 00:40 01/27/22 08:07 Vital Signs Reviewed: Yes Constitutional Constitutional: no acute distress HEENT Exam HEENT Exam: Normal Neck Exam Neck Exam: Normal Breast Exam Bilateral: Breast Exam: Normal and Soft Nipple Exam: Normal and Uninjured Respiratory Exam Respiratory Exam: Normal Cardiovascular Exam Cardiovascular Exam: Normal Abdominal Exam Abdomen: Other (soft, nontender) Fundal Exam Fundus: Below Umbilicus and Firm Rectal Exam Rectal Exam: Normal Exam Perineum: Normal and Repair Intact Extremities Exam Extremity Exam: Normal Back/Spine/Pelvis Exam Back Exam: Normal Skin Exam Skin Exam: Normal Neurological Exam Neurological Exam: Normal Psychiatric Exam Psychiatric Exam: Normal Results Hemoglobin/Hematocrit: Hgb 13.5 g/dL (11.2-15.7) 01/26/22 01:16 Hct 42.1 % (36.0-46.0) 01/26/22 01:16
[2022-01-27 20:14] VITALS: BP 110/70; PULSE 79; RESP 20; TEMP 36.9
[2022-01-28 07:50] VITALS: BP 117/74; PULSE 98; RESP 14; TEMP 36.6
[2022-01-28] MEDS: Acetaminophen 325 MG TAB 650 MG PO (08:28)
[2022-01-28] MEDS: Ibuprofen 600 MG TAB PO (08:29)
--- NOTE | 2022-01-28 09:38 | W.PM.OBPNV1 ---
Date of service: 01/28/22 Time of Service: 09:38 Assessment and Plan Assessment and plan (1) Term delivered: Status: Acute Assessment and plan: A: nml PPD #2 P: Planning discharge to home today Continue support via Peds office Plans NFP and fertility awareness for BCM RTO 2 & 6 wks Written instructions reviewed and given to pt Subjective Subjective Patient comments: No complaints, Pain well controlled, Tolerating diet and Bowel Movement Patient's Mood: pleased [place] baby status: Doing well, Nursing well, Rooming in and Strong Bonding Observed [place] feeding status: Exclusively breast feeding Exam Physical Exam Vital signs: Temp Pulse Resp BP Pulse Ox 97.9 F 98 H 14 117/74 97 01/28/22 07:50 01/28/22 07:50 01/28/22 07:50 01/28/22 07:50 01/27/22 08:07 Vital Signs Reviewed: Yes Constitutional Constitutional: no acute distress HEENT Exam HEENT Exam: Normal Neck Exam Neck Exam: Normal Breast Exam Bilateral: Breast Exam: Normal and Soft Respiratory Exam Respiratory Exam: Normal Cardiovascular Exam Cardiovascular Exam: Normal Abdominal Exam Abdomen: Other (soft, nontender) Fundal Exam Fundus: Below Umbilicus and Firm Rectal Exam Rectal Exam: Normal Exam Perineum: Normal and Repair Intact Extremities Exam Extremity Exam: Normal Back/Spine/Pelvis Exam Back Exam: Normal Skin Exam Skin Exam: Normal Neurological Exam Neurological Exam: Normal Psychiatric Exam Psychiatric Exam: Normal Hemorrrhage Note IV Site Left Forearm: IV Catheter Gauge: 20
--- NOTE | 2022-01-28 09:41 | W.PM.OBDISCH ---
Date of service: 01/28/22 Time of Service: 09:41 DS: Diagnosis Discharge Diagnosis (1) Term delivered: Status: Acute Discharge Plan Disposition Patient Disposition: HOME Condition: Good Discharge Details Reason For Visit: Rule out rupture of membranes Admit Date/Time: 01/26/22 00:06 Admit Provider: Elena Stafford Attending Provider: Elena Stafford Primary Care Provider: Amarilys Roberthryn Hospital Course Hospital Course: under epidural anesthesia, nml course, discharge on day 2 Home Meds and New Rx's Prescriptions: No Action prenat.vits,abbi,[id number] Tablet 1 tab PO DAILY 0RF cholecalciferol (vitamin D3) 125 mcg (5,000 unit) capsule 125 mcg PO .COMPLEX 0RF Rx Instructions: 125 mcg PO every two to three days; ferrous sulfate [Iron (ferrous sulfate)] 325 mg (65 mg iron) Tablet 50 mg PO PRN [id number] Discharge Instructions Additional Instructions: Please keep your 2 and 6 wk taker off hemp fiber appointments, though if you prefer the 2 week visit to be done by telehealth please call the office the day prior to the appointment to let us know. Call for any questions or concerns. Stand Alone Forms: BC Instructions, NB Circumcision Care Inst., NB Instructions, BC Post Vaginal Deliver Activity:: Activity as Tolerated Equipment/Supplies:: No Equipment Needed Diet:: Normal Diet Discharge Orders Discharge Orders: Discharge Order (Routine); Ordered 01/28/22 Ordered By: Maria De Jesus Soto OB:DS Summary Summary Vaginal Delivery Method: Spontaneaous Episiotomy Description: None Laceration Description: Other (vaginal) Laceration Extension: First Degree Contraception Discussed Contraception Discussed: Yes Contraceptive Plan: Not planning to use, Velpen Gender-Baby A: Male weight: 6 lb 7.882 oz Status at Discharge Functional status at discharge: independent ambulation Overall status at discharge: patient is progressing back to baseline Mental Status: mental status grossly normal Speech and Movement: speech and movement normal and speech clear Mood: congruent mood Affect: normal affect Exam Physical Exam Vital signs: Temp Pulse Resp BP Pulse Ox 97.9 F 98 H 14 117/74 97 01/28/22 07:50 01/28/22 07:50 01/28/22 07:50 01/28/22 07:50 01/27/22 08:07 Constitutional Constitutional: no acute distress HEENT Exam HEENT Exam: Normal Neck Exam Neck Exam: Normal Breast Exam Bilateral: Breast Exam: Normal and Soft Respiratory Exam Respiratory Exam: Normal Cardiovascular Exam Cardiovascular Exam: Normal Abdominal Exam Abdomen: Other (soft, nontender) Fundal Exam Fundus: Below Umbilicus and Firm Rectal Exam Rectal Exam: Normal Exam Perineum: Normal and Repair Intact Extremities Exam Extremity Exam: Normal Back/Spine/Pelvis Exam Back Exam: Normal Skin Exam Skin Exam: Normal Neurological Exam Neurological Exam: Normal Psychiatric Exam Psychiatric Exam: Normal PFSH All Active Problems (Updated 01/27/22 @ 16:50 by Maria De Jesus Soto) Term delivered (Acute) Anxiety (Chronic) wellbutrin in the past Advanced maternal age (AMA) in (Acute) Marijuana smoker (Acute) Depression (Acute 03/05/14) Medical History (Updated 01/27/22 @ 16:50 by Maria De Jesus Soto) 28 weeks gestation of Active labor at term Pain, dental resolved after taking antibiotics Premature rupture of membranes (PROM) affecting first Vaginal discharge during Surgical History Biopsy of breast (~2004) Dr Covarrubias Family History Mother Lung cancer age 53 Father COPD (chronic obstructive pulmonary disease) Social History Smoking/Tobacco Use Status: Former Tobacco Use Smoking risk assessment performed?: Yes Alcohol Intake: never Drug use: Daily Substance use type: marijuana Details: THC 1-2 times per day. current occupation: Fluorofinder Do you feel safe at home: Yes Do you feel safe in your relationship?: Yes Female Reproductive History Menstrual control method: condoms History History 1 Para 0 Hx # Term Pregnancies 0 Multiple births 0 Hx # Pregnancies 0 Ectopic pregnancies 0 AB induced 0 Hx Number of Living Children 0 AB spontaneous 0 DS: Data Vitals/I&O Vitals and I&O: Vital Signs Temperature 97.9 F 01/28/22 07:50 Pulse 98 H 01/28/22 07:50 Pulse Rhythm Regular 01/28/22 07:50 Respiratory Rate 14 01/28/22 07:50 Blood Pressure 117/74 01/28/22 07:50 Blood Pressure Mean 88 01/28/22 07:50 Pulse Oximetry 97 01/27/22 08:07 Oxygen Delivery Method Room Air 01/26/22 00:25 Oxygen Flow Rate 0 01/26/22 00:25 Pain Level 3 01/28/22 08:29 Intake & Output 01/27/22 01/27/22 01/28/22 11:59 23:59 11:59 Intake Total 1000 / 1000 Output Total 900 / 900 Balance 100 / 100 Intake: IV 1000 / 1000 Output: Urine 900 / 900 Other: Urine Color Yellow
== END 2022-01-28 12:40 | disposition home or self-care (01) | DRG 806 ==
PROVIDERS: Admitting Provider Advanced Practice Midwife; PCP Nurse Practitioner Family; Visit Provider Advanced Practice Midwife
DX: O42.02 Full-term premature rupture of membranes, onset of labor within 24 hours of rupture (principal); O99.324 Drug use complicating childbirth; Z37.0 Single live birth; Z3A.37 37 weeks gestation of pregnancy; F12.90 Cannabis use, unspecified, uncomplicated; O99.344 Other mental disorders complicating childbirth; F41.8 Other specified anxiety disorders; O70.0 First degree perineal laceration during delivery; B96.89 Other specified bacterial agents as the cause of diseases classified elsewhere; Z87.891 Personal history of nicotine dependence; K08.89 Other specified disorders of teeth and supporting structures
CPT/HCPCS: 36415; 85027; 86850; 86900; 86901; 87635; J2405; J3490

== ENCOUNTER 2024-06-13 02:53 | Outpatient (CLI) | payer MEDICAID, SELFPAY ==
[2024-06-13 08:11] LABS: HCT 43.1 % (36.0-46.0); HGB 14.5 g/dL (11.2-15.7); MCHC 33.6 % (32.0-36.0); MCV 92 fL (80-95); MPV 9.1 fL (8.0-11.0); Platelet Count 283 10^3/uL (130-400); RBC 4.68 10^6/uL (3.93-5.22); RDW 12.7 % (11.7-14.6); RDW-SD 43.2 fL; WBC 9.89 10^3/uL (4.4-10.8)
[2024-06-13 08:16] LABS: Hemoglobin A1C 5.5 % (<5.7)
[2024-06-13 09:13] LABS: Calculated LDL 127 mg/dL (<100); Cholesterol 209 mg/dL (<200); HDL Cholesterol 62 mg/dL (40-60); TSH (W/Ref FT4) 1.03 uIU/mL (0.36-3.74); Triglyceride 102 mg/dL (<150); Vitamin D 25 Total 30.2 ng/mL (30-100)
== END 2024-06-13 02:54 | disposition home or self-care (01) ==
LOC: LBO 02:53
PROVIDERS: PCP Nurse Practitioner Family; Visit Provider Nurse Practitioner Family
DX: Z00.00 Encounter for general adult medical examination without abnormal findings (principal); F32.9 Major depressive disorder, single episode, unspecified; F41.9 Anxiety disorder, unspecified; F39 Unspecified mood [affective] disorder
CPT/HCPCS: 36415; 80061; 82306; 85027; 83036; 84443

== ENCOUNTER 2024-07-11 14:13 | Outpatient (REF) | payer MEDICAID, SELFPAY ==
--- NOTE | 2024-07-11 14:40 | PAPFT_PTH ---
PATIENT: Ariel Betancourt LOC: [facility] U#:[id number] AGE/SX: 38/F ROOM: RE07/11/[address]: Shauna Mcmanus DO : 1985 BED: DIS: 07/11/2024 SPEC #: [id number] RECD: 07/11/24 18:08 STATUS: SOUNicki REQ #: [id number] BRIGIDO: 07/11/24 14:[address]: Shauna Mcmanus DEPT: [facility] Cytology RECD BY: Belinda Davison ENTERED: 07/11/24 18:08 SP TYPE: PAPFT OTHR DR: Rhiannon Lino APRN Tissues: 1 - CX/ENDOCX FOR PAP SMEARS Procedures: PAP THIN PREP/UVM Screening HPV DNA PROBE Comments: [id number] (HPV 16 & 18/45)
== END 2024-07-11 14:14 | disposition home or self-care (01) ==
LOC: LBN 14:13
PROVIDERS: PCP Nurse Practitioner Family; Visit Provider Obstetrics & Gynecology
DX: Z01.419 Encounter for gynecological examination (general) (routine) without abnormal findings (principal)
CPT/HCPCS: 88142; 87624